=== PATIENT | female | born 1990 | race Caucasian/White ===

== ENCOUNTER 2020-03-29 12:50 | Emergency (ER) | payer OTHER ==
[~2020-03-29] VITALS: Ht 167.6 cm; Wt 104.3 kg
[2020-03-29] MEDS ORDERED: XANAX 0.5 MG0.5 MG PO (13:06)
[2020-03-29] MEDS ORDERED: CYMBALTA60 MG PO (13:06)
[2020-03-29] MEDS ORDERED: NORCO 5-325 TA1 EAC2 PO (13:37)
[2020-03-29 13:56] VITALS: BP 122/82
== END 2020-03-29 13:56 | disposition home or self-care (01) ==
LOC: M.ERS 12:50
DX: T23.231A Burn of second degree of multiple right fingers (nail), not including thumb, initial encounter (principal); Z90.49 Acquired absence of other specified parts of digestive tract; Z98.890 Other specified postprocedural states; Z79.899 Other long term (current) drug therapy; X19.XXXA Contact with other heat and hot substances, initial encounter; Y93.89 Activity, other specified; Y92.89 Other specified places as the place of occurrence of the external cause; Y99.9 Unspecified external cause status

== ENCOUNTER 2020-06-05 08:59 | Emergency (ER) | payer OTHER ==
[~2020-06-05] VITALS: Ht 165.1 cm; Wt 104.3 kg
[~2020-06-05 08:59] MED LIST: CYMBALTA60 MG PO; NORCO 5-325 TA1 EAC2 PO; XANAX 0.5 MG0.5 MG PO
[2020-06-05 09:58] VITALS: BP 151/82
== END 2020-06-05 09:58 | disposition home or self-care (01) ==
LOC: M.ERS 08:59
DX: M25.532 Pain in left wrist (principal); M25.552 Pain in left hip; M79.642 Pain in left hand; Z98.890 Other specified postprocedural states; Z79.899 Other long term (current) drug therapy; Z88.6 Allergy status to analgesic agent; Z90.49 Acquired absence of other specified parts of digestive tract